=== PATIENT | male | born 1945 | race Caucasian/White ===

== ENCOUNTER 2017-06-10 09:28 | Outpatient (CLI) | payer OTHER ==
[~2017-06-10 09:28] MED LIST: ENALAPRIL MALEA10 MG PO; GILTUSS TR TAB1 EACH PO; GLUCOTROL10 MG PO; MELOXICAM15 MG PO; METFORMIN HCL500 MG PO; ZITHROMAX TRI-500 MG PO; ZYRTEC10 MG PO
== END 2017-06-10 09:33 | disposition home or self-care (01) ==
LOC: LAB 09:28
DX: I10 Essential (primary) hypertension (principal); E11.9 Type 2 diabetes mellitus without complications; N40.0 Benign prostatic hyperplasia without lower urinary tract symptoms

== ENCOUNTER → 2017-06-24 | Outpatient (CLI) | payer OTHER | END | disposition home or self-care (01) | LOC: RAD 09:05 | DX: G54.1 Lumbosacral plexus disorders (principal); S82.892A Other fracture of left lower leg, initial encounter for closed fracture; M54.9 Dorsalgia, unspecified ==

== ENCOUNTER 2017-06-27 10:09 | Outpatient (CLI) | payer OTHER | END 2017-06-27 10:16 | disposition home or self-care (01) | LOC: LAB 10:09 | DX: Z12.11 Encounter for screening for malignant neoplasm of colon (principal) ==

== ENCOUNTER 2017-12-11 08:45 | Outpatient (CLI) | payer OTHER | END 2017-12-11 18:48 | disposition home or self-care (01) | LOC: LAB 08:45 | DX: I11.9 Hypertensive heart disease without heart failure (principal); E11.8 Type 2 diabetes mellitus with unspecified complications; E78.5 Hyperlipidemia, unspecified; N39.0 Urinary tract infection, site not specified; E05.10 Thyrotoxicosis with toxic single thyroid nodule without thyrotoxic crisis or storm; C61 Malignant neoplasm of prostate ==

== ENCOUNTER 2017-12-14 08:04 | Outpatient (CLI) | payer OTHER | END 2017-12-14 08:06 | disposition home or self-care (01) | LOC: SONOGRAMA 08:04 | DX: N20.0 Calculus of kidney (principal) ==

== ENCOUNTER 2018-04-28 08:22 | Outpatient (CLI) | payer OTHER | END 2018-04-28 09:32 | disposition home or self-care (01) | LOC: LAB 08:22 | DX: I11.9 Hypertensive heart disease without heart failure (principal); E11.8 Type 2 diabetes mellitus with unspecified complications; E78.49 Other hyperlipidemia; E05.10 Thyrotoxicosis with toxic single thyroid nodule without thyrotoxic crisis or storm; N39.0 Urinary tract infection, site not specified; C61 Malignant neoplasm of prostate; Z12.11 Encounter for screening for malignant neoplasm of colon ==

== ENCOUNTER 2018-04-29 10:28 | Outpatient (CLI) | payer OTHER | END 2018-04-29 13:00 | disposition home or self-care (01) | LOC: LAB 10:28 | DX: I11.9 Hypertensive heart disease without heart failure (principal); E11.8 Type 2 diabetes mellitus with unspecified complications; E78.5 Hyperlipidemia, unspecified; E05.10 Thyrotoxicosis with toxic single thyroid nodule without thyrotoxic crisis or storm; N39.0 Urinary tract infection, site not specified; C61 Malignant neoplasm of prostate; Z12.11 Encounter for screening for malignant neoplasm of colon ==

== ENCOUNTER 2018-12-01 10:02 | Outpatient (CLI) | payer OTHER | END 2018-12-01 10:53 | disposition home or self-care (01) | LOC: LAB 10:02 | DX: I10 Essential (primary) hypertension (principal); E11.69 Type 2 diabetes mellitus with other specified complication; E78.49 Other hyperlipidemia; E03.1 Congenital hypothyroidism without goiter ==

== ENCOUNTER 2019-03-11 09:21 | Outpatient (CLI) | payer OTHER | END 2019-03-11 15:00 | disposition home or self-care (01) | LOC: LAB 09:21 | DX: E11.69 Type 2 diabetes mellitus with other specified complication (principal); I11.9 Hypertensive heart disease without heart failure; E78.49 Other hyperlipidemia; E05.10 Thyrotoxicosis with toxic single thyroid nodule without thyrotoxic crisis or storm; N39.0 Urinary tract infection, site not specified; Z12.11 Encounter for screening for malignant neoplasm of colon ==

== ENCOUNTER 2019-11-16 10:42 | Outpatient (CLI) | payer OTHER | END 2019-11-16 10:47 | disposition home or self-care (01) | LOC: LAB 10:42 | PROVIDERS: ATTEND Internal Medicine | DX: E11.65 Type 2 diabetes mellitus with hyperglycemia (principal); E78.49 Other hyperlipidemia ==

== ENCOUNTER 2019-11-30 08:33 | Outpatient (CLI) | payer OTHER | END 2019-11-30 08:43 | disposition home or self-care (01) | LOC: NUCLEAR 08:33 | PROVIDERS: ATTEND Internal Medicine | DX: I67.89 Other cerebrovascular disease (principal); I24.8 Other forms of acute ischemic heart disease; G46.4 Cerebellar stroke syndrome ==

== ENCOUNTER → 2020-05-16 | Outpatient (CLI) | payer OTHER | END | disposition home or self-care (01) | LOC: LAB 10:15 | PROVIDERS: ATTEND Internal Medicine | DX: I11.9 Hypertensive heart disease without heart failure (principal); E11.69 Type 2 diabetes mellitus with other specified complication; E78.9 Disorder of lipoprotein metabolism, unspecified; C61 Malignant neoplasm of prostate; N39.0 Urinary tract infection, site not specified; Z12.11 Encounter for screening for malignant neoplasm of colon; E05.10 Thyrotoxicosis with toxic single thyroid nodule without thyrotoxic crisis or storm ==

== ENCOUNTER 2020-05-30 10:02 | Outpatient (CLI) | payer OTHER | END 2020-05-30 10:04 | disposition home or self-care (01) | LOC: LAB 10:02 | PROVIDERS: ATTEND Internal Medicine | DX: R19.5 Other fecal abnormalities (principal); Z12.11 Encounter for screening for malignant neoplasm of colon ==

== ENCOUNTER 2020-11-17 11:10 | Emergency (ER) | payer OTHER ==
[~2020-11-17] VITALS: Ht 170.2 cm; Wt 88.5 kg
[2020-11-17] MEDS ORDERED: MUCINEX DM ER1 EAC1 PO (16:17)
[2020-11-17] MEDS ORDERED: BUDESONIDE0.5 MG/2 M IH (16:17)
[2020-11-17] MEDS ORDERED: LEVALBUTER1.25 MG/0. IH (16:17)
[2020-11-17] MEDS ORDERED: TESSALON PERLE100 M1 PO (16:17)
[2020-11-17] MEDS ORDERED: LEVOFLOXACIN750 MG PO (16:17)
[2020-11-17] MEDS ORDERED: RESPTHERAMACH (16:20)
== END 2020-11-17 16:52 | disposition home or self-care (01) ==
LOC: ER 11:10
DX: J20.9 Acute bronchitis, unspecified (principal); Z03.818 Encounter for observation for suspected exposure to other biological agents ruled out

== ENCOUNTER → 2021-03-23 09:21 | Outpatient (CLI) | payer OTHER ==
[~2021-03-23 09:21] MED LIST changes: +BUDESONIDE0.5 MG/2 M IH; +LEVALBUTER1.25 MG/0. IH; +LEVOFLOXACIN750 MG PO; +MUCINEX DM ER1 EAC1 PO; +RESPTHERAMACH; +TESSALON PERLE100 M1 PO
== END | disposition home or self-care (01) ==
LOC: LAB 09:21
PROVIDERS: ATTEND Internal Medicine
DX: E11.65 Type 2 diabetes mellitus with hyperglycemia (principal); I10 Essential (primary) hypertension; E78.2 Mixed hyperlipidemia; E03.8 Other specified hypothyroidism; N39.0 Urinary tract infection, site not specified; C61 Malignant neoplasm of prostate; Z12.11 Encounter for screening for malignant neoplasm of colon

== ENCOUNTER 2021-04-05 09:34 | Outpatient (CLI) | payer OTHER | END 2021-04-05 09:35 | disposition home or self-care (01) | LOC: LAB 09:34 | PROVIDERS: ATTEND Internal Medicine | DX: I10 Essential (primary) hypertension (principal); E11.65 Type 2 diabetes mellitus with hyperglycemia; E78.2 Mixed hyperlipidemia; E03.8 Other specified hypothyroidism; C61 Malignant neoplasm of prostate; Z12.11 Encounter for screening for malignant neoplasm of colon ==

== ENCOUNTER 2021-05-03 09:09 | Outpatient (CLI) | payer OTHER | END 2021-05-03 09:20 | disposition home or self-care (01) | LOC: MRI 09:09 | PROVIDERS: ATTEND Orthopaedic Surgery Sports Medicine | DX: M17.11 Unilateral primary osteoarthritis, right knee (principal); M23.241 Derangement of anterior horn of lateral meniscus due to old tear or injury, right knee; M25.561 Pain in right knee; M75.121 Complete rotator cuff tear or rupture of right shoulder, not specified as traumatic | CPT/HCPCS: 73221; 73721 ==

== ENCOUNTER 2022-03-29 10:11 | Outpatient (CLI) | payer OTHER | END 2022-03-29 10:13 | disposition home or self-care (01) | LOC: LAB 10:11 | PROVIDERS: ATTEND Internal Medicine | DX: I11.9 Hypertensive heart disease without heart failure (principal); E03.8 Other specified hypothyroidism; E78.2 Mixed hyperlipidemia; R73.01 Impaired fasting glucose; N39.0 Urinary tract infection, site not specified; D50.9 Iron deficiency anemia, unspecified; R94.5 Abnormal results of liver function studies ==

== ENCOUNTER 2022-08-21 10:09 | Outpatient (CLI) | payer OTHER | END 2022-08-21 10:11 | disposition home or self-care (01) | LOC: LAB 10:09 | DX: E03.8 Other specified hypothyroidism (principal); I10 Essential (primary) hypertension; E78.2 Mixed hyperlipidemia; E55.9 Vitamin D deficiency, unspecified; E11.65 Type 2 diabetes mellitus with hyperglycemia; N39.0 Urinary tract infection, site not specified; D50.9 Iron deficiency anemia, unspecified; R94.5 Abnormal results of liver function studies ==

== ENCOUNTER 2022-09-28 10:35 | Outpatient (CLI) | payer OTHER | END 2022-09-28 10:37 | disposition home or self-care (01) | LOC: LAB 10:35 | DX: C61 Malignant neoplasm of prostate (principal); N39.0 Urinary tract infection, site not specified ==

== ENCOUNTER → 2022-12-26 12:59 | Outpatient (CLI) | payer OTHER ==
[2022-12-26 15:09] LABS: ob NEGATIVE (NEGATIVE)
== END | disposition home or self-care (01) ==
LOC: LAB 12:59
DX: D64.9 Anemia, unspecified (principal); Z12.82 Encounter for screening for malignant neoplasm of nervous system

== ENCOUNTER 2023-02-28 14:04 | Outpatient (CLI) | payer OTHER ==
[2023-02-28 15:57] LABS: MYCOPLASMA PNEUMONIAE IGM NON REACTIVE (NO REACTIVE)
== END 2023-02-28 14:05 | disposition home or self-care (01) ==
LOC: LAB 14:04
DX: J42 Unspecified chronic bronchitis (principal)

== ENCOUNTER → 2023-04-17 10:20 | Outpatient (CLI) | payer OTHER ==
[2023-04-17 11:08] LABS: PH,URINE 5.5 (5.0-8.0); URINE APPEARANCE Clear; URINE BILIRRUBIN Negative (NEGATIVE); URINE BLOOD Negative; URINE COLOR Yellow; URINE GLUCOSE Negative (NEGATIVE); URINE LEUKOCYTE Negative; URINE NITRATE Negative; URINE PROTEIN Negative (NEGATIVE)
[2023-04-17 11:12] LABS: URINE BACTERIA 30.2 uL (0.0-1933); URINE EPITHELIAL CELLS 5.8 uL (0.0-38.8); URINE WBC 4.7 uL (0.0-23.2)
[2023-04-17 11:15] LABS: HEMATOCRIT 40.2 % (39.0-48.0); HEMOGLOBIN 14.1 g/dL (13-16.00); MEAN CELL VOLUME 89.8 fL (80.0-100.00); MEAN CORPUSCULAR HEMOGLOBIN 31.4 pg (27.00-32.0); PLATELET COUNT 293 K/uL (150-450); RED BLOOD COUNT 4.48 M/uL (4.00-6.00); RED CELL DISTRIBUTION WIDTH 13.7 % (11.5-14.5)
[2023-04-17 11:27] LABS: URINE RBC 1.8 uL (0.0-20.8)
[2023-04-17 11:48] LABS: ALBUMIN 3.9 gm/dL (3.4-5.0); BILIRUBIN TOTAL 0.61 mg/dL (0.3-1.2); CALCIUM 10.1 mg/dL (8.5-10.1); CHOL HDL RATIO 4.3 (0-5.0); CREATININE SERUM 0.84 mg/dL (0.70-1.30); GFR 88.84; GLOBULINA 3.4 G/DL (2.4-3.5); POTASSIUM 4.26 mEq/L (3.5-5.1); PROSTATIC SPECIFIC ANTIGEN 0.241 NG/ML (0.010-4.00); T4 FREE 1.05 NG/ML (0.76-1.46); TOTAL PROTEIN 7.3 gm/dL (6.4-8.2); TSH 0.728 uIU/mL (0.358-3.74)
[2023-04-17 12:12] LABS: ob NEGATIVE (NEGATIVE)
== END | disposition home or self-care (01) ==
LOC: LAB 10:20
PROVIDERS: ATTEND Internal Medicine
DX: I11.9 Hypertensive heart disease without heart failure (principal); E03.8 Other specified hypothyroidism; E78.2 Mixed hyperlipidemia; E55.9 Vitamin D deficiency, unspecified; M81.0 Age-related osteoporosis without current pathological fracture; M85.89 Other specified disorders of bone density and structure, multiple sites; E11.65 Type 2 diabetes mellitus with hyperglycemia; R80.9 Proteinuria, unspecified; E11.22 Type 2 diabetes mellitus with diabetic chronic kidney disease; N39.0 Urinary tract infection, site not specified; D50.9 Iron deficiency anemia, unspecified; C61 Malignant neoplasm of prostate; Z12.11 Encounter for screening for malignant neoplasm of colon

== ENCOUNTER → 2023-09-14 | Emergency (ER) | payer OTHER ==
[~2023-09-14] VITALS: Ht 167.6 cm; Wt 97.5 kg
[~2023-09-14] MED LIST changes: +ACETAMINOPHEN 500 MG GEL..CAP PO ONE; +KETOROLAC TROMETHAMINE 30 MG VIAL IM ONE; +KETOROLAC TROMETHAMINE 30 MG VIAL ONE; +TRAMADOL HCL 50 MG TABLET PO ONE
== END | disposition home or self-care (01) ==
LOC: ER 10:32
DX: M25.569 Pain in unspecified knee (principal); I10 Essential (primary) hypertension; E11.9 Type 2 diabetes mellitus without complications; Z79.84 Long term (current) use of oral hypoglycemic drugs
CPT/HCPCS: 29505; 73502; 73560; 96372; 99283; J1885

== ENCOUNTER 2023-10-16 10:30 | Outpatient (CLI) | payer OTHER ==
[~2023-10-16 10:30] MED LIST changes: -ACETAMINOPHEN 500 MG GEL..CAP PO ONE; -KETOROLAC TROMETHAMINE 30 MG VIAL IM ONE; -KETOROLAC TROMETHAMINE 30 MG VIAL ONE; -TRAMADOL HCL 50 MG TABLET PO ONE
[2023-10-16 10:52] LABS: HEMATOCRIT 40.7 % (39.0-48.0); MEAN CELL VOLUME 91.2 fL (80.0-100.00); MEAN CORPUSCULAR HEMOGLOBIN 31.4 pg (27.00-32.0); MEAN CORPUSCULAR HGB CONC 34.4 g/dl (32.0-36.0); PLATELET COUNT 317 K/uL (150-450); RED BLOOD COUNT 4.46 M/uL (4.00-6.00); RED CELL DISTRIBUTION WIDTH 13.4 % (11.5-14.5)
[2023-10-16 11:09] LABS: URINE APPEARANCE Clear; URINE BILIRRUBIN Negative (NEGATIVE); URINE BLOOD Negative; URINE COLOR Yellow; URINE GLUCOSE Negative (NEGATIVE); URINE KETONE Trace (NEGATIVE); URINE LEUKOCYTE Small; URINE NITRATE Negative; URINE PROTEIN Trace (NEGATIVE)
[2023-10-16 11:13] LABS: URINE RBC 5.6 uL (0.0-20.8); URINE WBC 117.7 uL (0.0-23.2)
[2023-10-16 11:47] LABS: URINE CAST 1.37 uL (0.0-1.40); URINE CRYSTALS FEW /HPF; URINE MUCUS MODERATE
[2023-10-16 11:59] LABS: BILIRUBIN TOTAL 0.65 mg/dL (0.3-1.2); CALCIUM 9.9 mg/dL (8.5-10.1); CHOL HDL RATIO 4.4 (0-5.0); CREATININE SERUM 0.9 mg/dL (0.70-1.30); GFR 82.04; GLOBULINA 3.6 G/DL (2.4-3.5); POTASSIUM 4.19 mEq/L (3.5-5.1); PROSTATIC SPECIFIC ANTIGEN 0.344 NG/ML (0.010-4.00); T4 FREE 1.1 NG/ML (0.76-1.46); TOTAL PROTEIN 7.6 gm/dL (6.4-8.2); TSH 0.749 uIU/mL (0.358-3.74)
== END 2023-10-16 10:31 | disposition home or self-care (01) ==
LOC: LAB 10:30
DX: E03.8 Other specified hypothyroidism (principal); E55.9 Vitamin D deficiency, unspecified; M81.0 Age-related osteoporosis without current pathological fracture; E11.65 Type 2 diabetes mellitus with hyperglycemia; E11.22 Type 2 diabetes mellitus with diabetic chronic kidney disease; R80.9 Proteinuria, unspecified; N39.0 Urinary tract infection, site not specified; D50.9 Iron deficiency anemia, unspecified; C61 Malignant neoplasm of prostate

== ENCOUNTER 2024-06-12 10:06 | Outpatient (CLI) | payer OTHER | END 2024-06-12 10:08 | disposition home or self-care (01) | LOC: RAD 10:06 | DX: M17.11 Unilateral primary osteoarthritis, right knee (principal) ==

== ENCOUNTER → 2024-06-29 09:56 | Outpatient (CLI) | payer OTHER ==
[2024-06-29 10:52] LABS: BASO % 0.5 % (0.1-1.2); EOS # 0.11 (0.04-0.54); EOS % 1.4 % (0.7-7.0); HEMATOCRIT 40.1 % (40.1-51.0); HEMOGLOBIN 13.5 g/dL (13.7-17.5); LYMPH # 2.44 (1.18-3.74); LYMPH % 30.4 % (19.3-53.1); MEAN CORPUSCULAR HEMOGLOBIN 29.8 pg (25.6-32.2); MONO % 6.2 % (4.7-12.5); NEUT # 4.92 (1.56-6.13); NEUT % 61.3 % (34.0-71.1); PLATELET COUNT 327 K/uL (163-369); RED BLOOD COUNT 4.53 M/uL (4.63-6.08); RED CELL DISTRIBUTION WIDTH 12.8 % (11.6-14.4)
[2024-06-29 11:28] LABS: URINE APPEARANCE Clear; URINE BILIRRUBIN Negative (NEGATIVE); URINE BLOOD Negative; URINE COLOR Yellow; URINE GLUCOSE Negative (NEGATIVE); URINE KETONE Negative (NEGATIVE); URINE LEUKOCYTE Negative; URINE NITRATE Negative; URINE PROTEIN Negative (NEGATIVE); URINE UROBILINOGEN 0.2 E.U./dl
[2024-06-29 11:29] LABS: URINE BACTERIA 72.1 uL (0.0-1933); URINE EPITHELIAL CELLS 12.1 uL (0.0-38.8); URINE WBC 10.2 uL (0.0-23.2)
[2024-06-29 11:39] LABS: ALBUMIN 3.7 gm/dL (3.4-5.0); BILIRUBIN TOTAL 0.5 mg/dL (0.3-1.2); CALCIUM 9.4 mg/dL (8.5-10.1); CHOL HDL RATIO 3.5 (0-5.0); CREATININE SERUM 0.91 mg/dL (0.70-1.30); GFR 80.79; GLOBULINA 3.6 G/DL (2.4-3.5); POTASSIUM 4.22 mEq/L (3.5-5.1); PROSTATIC SPECIFIC ANTIGEN 0.217 NG/ML (0.010-4.00); T4 FREE 1.03 NG/ML (0.76-1.46); TOTAL PROTEIN 7.3 gm/dL (6.4-8.2); TSH 1.11 uIU/mL (0.358-3.74)
[2024-06-29 12:42] LABS: URINE CAST 0.14 uL (0.0-1.40); URINE CRYSTALS FEW /HPF
== END | disposition home or self-care (01) ==
LOC: LAB 09:56
DX: I10 Essential (primary) hypertension (principal); E03.8 Other specified hypothyroidism; E78.2 Mixed hyperlipidemia; E55.9 Vitamin D deficiency, unspecified; M81.0 Age-related osteoporosis without current pathological fracture; E11.65 Type 2 diabetes mellitus with hyperglycemia; R80.9 Proteinuria, unspecified; N39.0 Urinary tract infection, site not specified; D50.9 Iron deficiency anemia, unspecified; C61 Malignant neoplasm of prostate; Z12.11 Encounter for screening for malignant neoplasm of colon

== ENCOUNTER → 2024-07-01 10:55 | Outpatient (CLI) | payer OTHER ==
[2024-07-01 13:16] LABS: ob NEGATIVE (NEGATIVE)
== END | disposition home or self-care (01) ==
LOC: LAB 10:55
DX: E03.8 Other specified hypothyroidism (principal); I10 Essential (primary) hypertension; E78.2 Mixed hyperlipidemia; E55.9 Vitamin D deficiency, unspecified; E11.65 Type 2 diabetes mellitus with hyperglycemia; R80.9 Proteinuria, unspecified; N39.0 Urinary tract infection, site not specified; D50.9 Iron deficiency anemia, unspecified; C61 Malignant neoplasm of prostate; Z12.11 Encounter for screening for malignant neoplasm of colon; R94.5 Abnormal results of liver function studies